=== PATIENT | female | born 1930 | race Caucasian/White ===

== ENCOUNTER 2020-05-04 10:59 | Inpatient (IN) | payer MEDICARE ==
[2020-05-04 11:17] LABS: Hemoglobin 12.3 g/dL (12.0-16.0); Mean Corpuscular Hemoglobin 31.4 pg (27.0-31.0); Mean Corpuscular Volume 92.2 fL (78.0-98.0); Mean Platelet Volume 7.9 fL (7.4-10.4); Platelet Count 328 thou/uL (130-400); RBC Distribution Width 11.5 % (11.5-14.5); Red Blood Cell (RBC) Count 3.92 mill/uL (4.20-5.40); White Blood Cell (WBC) Count 7.5 thou/uL (4.8-10.8)
[2020-05-04 11:28] LABS: ALT (SGPT) 17 U/L (8-55); AST (SGOT) 37 U/L (5-34); Albumin 3.7 g/dL (3.4-4.8); Alkaline Phosphatase 97 U/L (40-110); Anion Gap 14 mmol/L (10-20); BUN (Urea Nitrogen) 21 mg/dL (9.8-20.1); Bilirubin, Total 0.7 mg/dL (0.2-1.2); Calc. Creatinine Clearance 0 mL/min (70-130); Calcium 8.8 mg/dL (7.8-10.44); Carbon Dioxide 21 mmol/L (23-31); Chloride 105 mmol/L (98-107); Glucose 129 mg/dL (83-110); Potassium 4.1 mmol/L (3.5-5.1); Protein, Total 6.7 g/dL (5.8-8.1); Sodium 136 mmol/L (136-145)
[2020-05-04 11:38] LABS: Band 1 % (5-11); Eosinophils 4 % (0-10); Lymphocytes 45 % (21-51); MDiff Complete? YES; Monocytes 8 % (0-10); Neutrophil 41 % (42-75); Platelet Morphology Comment Appears Adequate; RBC Morphology Normal
[2020-05-04 11:39] LABS: Prothrombin Time 13.1 sec (12.0-14.7)
[2020-05-04 11:40] LABS: PTT 36.2 sec (22.9-36.1)
[2020-05-04 13:00] LABS: Bilirubin Negative (Negative); Blood, Urine Trace (Negative); Glucose, Urine (Dipstick) Negative (Negative); Ketone, Urine Negative (Negative); Leukocyte Moderate (Negative); Nitrite Negative (Negative); Protein, Urine (Dipstick) Negative (Neg-Trace); Specific Gravity, Urine 1.025 (1.005-1.030); Urobilinogen 0.2 mg/dL (Less than 2)
[2020-05-04 13:02] LABS: Clarity Hazy (Clear)
[2020-05-04] MEDS ORDERED: cefTRIAXone\\ROCEPHIN 1 GM VIAL ONE ×2 (13:15→13:34)
[2020-05-04] MEDS ORDERED: hydrALAZINE 20 MG/ML VIAL SLOW IVP PRN (13:26)
[2020-05-04] MEDS ORDERED: Acetaminophen 650 MG Suppository PR PRN (13:26)
[2020-05-04] MEDS ORDERED: Ondansetron PF 4 MG/2 ML Vial IVP PRN (13:26)
[2020-05-04] MEDS ORDERED: Acetaminophen 325 MG TAB PO PRN (13:26)
[2020-05-04] MEDS ORDERED: Ondansetron ODT 4 MG TAB PO PRN (13:26)
[2020-05-04] MEDS ORDERED: Magnesium 2 GM/50 ML 2 GM in Premix Bag 1 BAG IVPB SCH (14:15)
[2020-05-04 15:01] LABS: Hemoglobin A1c 4.9 % (4.0-6.0)
[2020-05-04] MEDS: Sodium Chloride 0.9% 1,000 ML IV SCH (18:13)
[2020-05-05] MEDS: Sodium Chloride 0.9% 1,000 ML IV SCH ×2 (00:27→17:10)
[2020-05-05 02:38] LABS: SARS-CoV-2 PCR by NAA Not Detected (NotDetected)
[2020-05-05 04:27] LABS: #Basophils 0.1 thou/uL (0.0-0.2); #Eosinphils 0.2 thou/uL (0.0-0.7); #Lymphocytes 2.4 thou/uL (1.20-3.40); #Monocytes 0.8 thou/uL (0.11-0.59); #Neutrophils 4.9 thou/uL (1.40-6.50); %Basophils 0.8 % (0.0-1.0); %Eosinophils 2.5 % (0.0-10.0); %Lymphocytes 28.8 % (21.0-51.0); %Monocytes 9.7 % (0.0-10.0); %Neutrophils 58.2 % (42.0-75.0); Hemoglobin 11.3 g/dL (12.0-16.0); Mean Corpuscular HGB CONC 32.6 g/dL (32.0-36.0); Mean Platelet Volume 7.6 fL (7.4-10.4); Platelet Count 325 thou/uL (130-400); RBC Distribution Width 11.5 % (11.5-14.5); Red Blood Cell (RBC) Count 3.79 mill/uL (4.20-5.40); White Blood Cell (WBC) Count 8.3 thou/uL (4.8-10.8)
[2020-05-05 04:47] LABS: Anion Gap 11 mmol/L (10-20); BUN (Urea Nitrogen) 16 mg/dL (9.8-20.1); Calc. Creatinine Clearance 61 mL/min (70-130); Calcium 8.6 mg/dL (7.8-10.44); Carbon Dioxide 24 mmol/L (23-31); Chloride 109 mmol/L (98-107); Cholesterol 170 mg/dl (< 200 Desired); Glucose 89 mg/dL (83-110); HDL Cholesterol 56 mg/dL (>60 Neg Risk); LDL Cholesterol, Calculated 101 mg/dL; Potassium 4.1 mmol/L (3.5-5.1); Sodium 140 mmol/L (136-145); Triglycerides 64 mg/dL (Less than 150)
[2020-05-05] MEDS: Aspirin 81 mg Enteric Coated Tablet PO SCH (08:41)
[2020-05-05] MEDS ORDERED: Iopamidol 370 76% 100 ML VIAL ONE (10:46)
[2020-05-05 12:53] VITALS: BMI 28.3
[2020-05-06 05:12] LABS: #Basophils 0.1 thou/uL (0.0-0.2); #Eosinphils 0.2 thou/uL (0.0-0.7); #Lymphocytes 2.1 thou/uL (1.20-3.40); #Monocytes 0.6 thou/uL (0.11-0.59); #Neutrophils 3.9 thou/uL (1.40-6.50); %Basophils 1.8 % (0.0-1.0); %Eosinophils 2.4 % (0.0-10.0); %Lymphocytes 30.9 % (21.0-51.0); %Monocytes 8.5 % (0.0-10.0); %Neutrophils 56.4 % (42.0-75.0); Mean Corpuscular HGB CONC 31.7 g/dL (32.0-36.0); Mean Corpuscular Hemoglobin 28.9 pg (27.0-31.0); Mean Corpuscular Volume 90.9 fL (78.0-98.0); Platelet Count 346 thou/uL (130-400); RBC Distribution Width 11.4 % (11.5-14.5); Red Blood Cell (RBC) Count 4.15 mill/uL (4.20-5.40); White Blood Cell (WBC) Count 6.9 thou/uL (4.8-10.8)
[2020-05-06 05:32] LABS: Anion Gap 14 mmol/L (10-20); BUN (Urea Nitrogen) 13 mg/dL (9.8-20.1); Calc. Creatinine Clearance 60 mL/min (70-130); Carbon Dioxide 22 mmol/L (23-31); Chloride 107 mmol/L (98-107); Glucose 90 mg/dL (83-110); Potassium 3.6 mmol/L (3.5-5.1); Sodium 139 mmol/L (136-145)
[2020-05-06] MEDS: Aspirin 81 mg Enteric Coated Tablet PO SCH (08:02)
[2020-05-06] MEDS: Sodium Chloride 0.9% 1,000 ML IV SCH (08:02)
[2020-05-07] MEDS: Sodium Chloride 0.9% 1,000 ML IV SCH ×2 (00:55→05:58)
[2020-05-07 04:32] LABS: #Basophils 0.1 thou/uL (0.0-0.2); #Eosinphils 0.3 thou/uL (0.0-0.7); #Lymphocytes 2.6 thou/uL (1.20-3.40); #Monocytes 0.9 thou/uL (0.11-0.59); #Neutrophils 3.4 thou/uL (1.40-6.50); %Basophils 0.9 % (0.0-1.0); %Eosinophils 4.5 % (0.0-10.0); %Monocytes 11.8 % (0.0-10.0); %Neutrophils 46.8 % (42.0-75.0); Mean Corpuscular HGB CONC 32.5 g/dL (32.0-36.0); Mean Corpuscular Hemoglobin 29.6 pg (27.0-31.0); Mean Corpuscular Volume 91.3 fL (78.0-98.0); Platelet Count 327 thou/uL (130-400); RBC Distribution Width 11.5 % (11.5-14.5); Red Blood Cell (RBC) Count 4.03 mill/uL (4.20-5.40); White Blood Cell (WBC) Count 7.3 thou/uL (4.8-10.8)
[2020-05-07 04:54] LABS: Anion Gap 11 mmol/L (10-20); BUN (Urea Nitrogen) 19 mg/dL (9.8-20.1); Calc. Creatinine Clearance 59 mL/min (70-130); Calcium 8.6 mg/dL (7.8-10.44); Carbon Dioxide 26 mmol/L (23-31); Chloride 107 mmol/L (98-107); Glucose 87 mg/dL (83-110); Potassium 3.8 mmol/L (3.5-5.1); Sodium 140 mmol/L (136-145)
[2020-05-07] MEDS: Aspirin 81 mg Enteric Coated Tablet PO SCH (07:47)
[2020-05-07] MEDS ORDERED: ADENOSINE 60 MG/20 ML VIAL ONE (10:40)
[2020-05-07] MEDS: Amlodipine 5 MG TAB PO SCH (11:28)
[2020-05-07] MEDS ORDERED: Donepezil HCl 10 MG TAB PO SCH (21:00)
[2020-05-08 04:51] LABS: #Basophils 0.1 thou/uL (0.0-0.2); #Eosinphils 0.3 thou/uL (0.0-0.7); #Lymphocytes 2.3 thou/uL (1.20-3.40); #Monocytes 0.8 thou/uL (0.11-0.59); #Neutrophils 4.2 thou/uL (1.40-6.50); %Basophils 0.9 % (0.0-1.0); %Eosinophils 3.3 % (0.0-10.0); %Lymphocytes 30.5 % (21.0-51.0); %Monocytes 10.4 % (0.0-10.0); %Neutrophils 54.9 % (42.0-75.0); Hemoglobin 11.8 g/dL (12.0-16.0); Mean Corpuscular HGB CONC 33.5 g/dL (32.0-36.0); Mean Corpuscular Hemoglobin 30.7 pg (27.0-31.0); Mean Corpuscular Volume 91.7 fL (78.0-98.0); Mean Platelet Volume 8.2 fL (7.4-10.4); Platelet Count 322 thou/uL (130-400); RBC Distribution Width 11.3 % (11.5-14.5); Red Blood Cell (RBC) Count 3.83 mill/uL (4.20-5.40); White Blood Cell (WBC) Count 7.6 thou/uL (4.8-10.8)
[2020-05-08 05:13] LABS: Anion Gap 12 mmol/L (10-20); BUN (Urea Nitrogen) 17 mg/dL (9.8-20.1); Calc. Creatinine Clearance 61 mL/min (70-130); Calcium 8.7 mg/dL (7.8-10.44); Carbon Dioxide 23 mmol/L (23-31); Chloride 107 mmol/L (98-107); Glucose 89 mg/dL (83-110); Potassium 3.8 mmol/L (3.5-5.1); Sodium 138 mmol/L (136-145)
[2020-05-08] MEDS: Amlodipine 5 MG TAB PO SCH ×2 (07:43→09:34)
[2020-05-08] MEDS: Aspirin 81 mg Enteric Coated Tablet PO SCH (07:43)
[2020-05-08] MEDS: traZODone HCl 50 MG TAB PO SCH (07:43)
[2020-05-08] MEDS ORDERED: Communication Order-Pharmacy FS SCH (18:15)
[2020-05-08] MEDS: Sodium Chloride 0.9% 1,000 ML IV SCH (18:44)
[2020-05-09] MEDS: Aspirin 81 mg Enteric Coated Tablet PO SCH (05:12)
[2020-05-09] MEDS: Amlodipine 5 MG TAB PO SCH (05:12)
[2020-05-09] MEDS: traZODone HCl 50 MG TAB PO SCH (05:13)
[2020-05-09] MEDS: Sodium Chloride 0.9% 1,000 ML IV SCH ×2 (05:29→18:22)
[2020-05-09] MEDS ORDERED: Iopamidol 370 76% 100 ML VIAL ONE (08:57)
[2020-05-09] MEDS ORDERED: Lidocaine 1% (PF) 30 ML VIAL ONE (09:49)
[2020-05-09] MEDS ORDERED: Nitroglycerin 100MG/250ML BOT 250 ML ONE (10:36)
[2020-05-09] MEDS ORDERED: Nitroglycerin 0.4 MG TAB (25 Tab Bottle) SL PRN (11:44)
[2020-05-09] MEDS ORDERED: Sodium Chloride 0.9% 200 ML IV PRN (11:44)
[2020-05-10] MEDS: Sodium Chloride 0.9% 1,000 ML IV SCH ×2 (00:30→10:37)
[2020-05-10] MEDS: traZODone HCl 50 MG TAB PO SCH (08:43)
[2020-05-10] MEDS: Aspirin 81 mg Enteric Coated Tablet PO SCH (08:43)
[2020-05-10] MEDS: Amlodipine 5 MG TAB PO SCH (08:43)
[2020-05-11] MEDS ORDERED: Sodium Chloride 0.9% 1,000 ML IV SCH (06:00)
[2020-05-11] MEDS ORDERED: CEFAZOLIN 2 GM in Premix Bag 1 BAG IVPB SCH (06:00)
[2020-05-11] MEDS: Amlodipine 5 MG TAB PO SCH (07:50)
[2020-05-11] MEDS: Aspirin 81 mg Enteric Coated Tablet PO SCH (07:51)
[2020-05-11] MEDS: traZODone HCl 50 MG TAB PO SCH (07:54)
[2020-05-11] MEDS ORDERED: CEFAZOLIN 1 GM VIAL ONE (07:55)
[2020-05-11] MEDS ORDERED: Gentamicin 80 MG/2 ML VIAL ONE (07:55)
[2020-05-11] MEDS ORDERED: Fentanyl 100 MCG/2 ML VIAL ONE (10:57)
[2020-05-11] MEDS ORDERED: Midazolam HCl 2 mg/2 ml Vial ONE (10:57)
[2020-05-11] MEDS ORDERED: Iopamidol 370 76% 50 ML VIAL FS ONE (11:01)
[2020-05-11] MEDS ORDERED: Lidocaine 1% (PF) 30 ML VIAL ONE (11:02)
[2020-05-11] MEDS: Cephalexin 250 MG CAP PO SCH ×2 (17:17→20:06)
[2020-05-12] MEDS: Aspirin 81 mg Enteric Coated Tablet PO SCH (09:22)
[2020-05-12] MEDS: Cephalexin 250 MG CAP PO SCH (09:22)
[2020-05-12] MEDS: Amlodipine 5 MG TAB PO SCH (09:23)
[2020-05-12] MEDS: traZODone HCl 50 MG TAB PO SCH (09:23)
[2020-05-12 12:03] VITALS: BP 161/74; TEMP 97.6
[2020-05-12] MEDS ORDERED: Rosuvastatin 20 MG TAB PO SCH (21:00)
== END 2020-05-12 13:45 | disposition home health service (06) | DRG 244 ==
LOC: ERS 10:59 → ERHOLD 13:59 → 2NO 15:58
PROVIDERS: ADMIT Internal Medicine; ATTEND Hospitalist
PROC: 0JH606Z Insertion of Pacemaker, Dual Chamber into Chest Subcutaneous Tissue and Fascia, Open Approach (ICD-10-PCS; principal; 2020-05-04)
PROC: 02HK3JZ Insertion of Pacemaker Lead into Right Ventricle, Percutaneous Approach (ICD-10-PCS; 2020-05-04)
PROC: 02H63JZ Insertion of Pacemaker Lead into Right Atrium, Percutaneous Approach (ICD-10-PCS; 2020-05-04)
PROC: 4A023N7 Measurement of Cardiac Sampling and Pressure, Left Heart, Percutaneous Approach (ICD-10-PCS; 2020-05-04)
PROC: B2111ZZ Fluoroscopy of Multiple Coronary Arteries using Low Osmolar Contrast (ICD-10-PCS; 2020-05-04)
PROC: B2151ZZ Fluoroscopy of Left Heart using Low Osmolar Contrast (ICD-10-PCS; 2020-05-04)
DX: I49.5 Sick sinus syndrome (principal); I10 Essential (primary) hypertension; F03.90 Unspecified dementia, unspecified severity, without behavioral disturbance, psychotic disturbance, mood disturbance, and anxiety; I44.0 Atrioventricular block, first degree; R91.1 Solitary pulmonary nodule; I35.1 Nonrheumatic aortic (valve) insufficiency; I25.10 Atherosclerotic heart disease of native coronary artery without angina pectoris; E78.00 Pure hypercholesterolemia, unspecified; Z79.82 Long term (current) use of aspirin; Z90.710 Acquired absence of both cervix and uterus
CPT/HCPCS: 33208; 36005; 36415; 36416; 51701; 70450; 70551; 71045; 71275; 75820; 76942; 78452; 80048; 80053; 80061; 81003; 81015; 83036; 83735; 83880; 84443; 84484; 85025; 85379; 85610; 85730; 87635; 93005; 93017; 93306; 93458; 93880; 94760; 95816; 95819; 95957; 96365; 97139; 99152; 99153; A9500; C1785; C1898; J0153; J0690; J0696; J1580; J1644; J2001; J2250; J3010; Q9967; U0003; U0005

== ENCOUNTER 2021-02-20 13:08 | Emergency (ER) | payer MEDICARE ==
[2021-02-20] MEDS ORDERED: Dexamethasone 10 MG/ML VIAL ONE (15:53)
[2021-02-20 16:43] LABS: #Basophils 0.1 thou/uL (0.0-0.2); #Eosinphils 0.3 thou/uL (0.0-0.7); #Lymphocytes 3.1 thou/uL (1.20-3.40); #Neutrophils 4.4 thou/uL (1.40-6.50); %Basophils 0.7 % (0.0-1.0); %Eosinophils 2.9 % (0.0-10.0); %Lymphocytes 35.2 % (21.0-51.0); %Monocytes 11.2 % (0.0-10.0); Hemoglobin 10.9 g/dL (12.0-16.0); Mean Corpuscular HGB CONC 34.1 g/dL (32.0-36.0); Mean Corpuscular Hemoglobin 31.4 pg (27.0-31.0); Mean Platelet Volume 6.7 fL (7.4-10.4); Platelet Count 357 thou/uL (130-400); RBC Distribution Width 11.9 % (11.5-14.5); Red Blood Cell (RBC) Count 3.48 mill/uL (4.20-5.40); White Blood Cell (WBC) Count 8.9 thou/uL (4.8-10.8)
[2021-02-20] MEDS ORDERED: Albuterol 200 PUFF (6.7GM INHALER) ONE (16:45)
[2021-02-20 17:05] LABS: ALT (SGPT) 25 U/L (8-55); AST (SGOT) 54 U/L (5-34); Alkaline Phosphatase 98 U/L (40-110); Anion Gap 12 mmol/L (10-20); BUN (Urea Nitrogen) 16 mg/dL (9.8-20.1); Bilirubin, Total 0.5 mg/dL (0.2-1.2); Calc. Creatinine Clearance 0 mL/min (70-130); Calcium 9.7 mg/dL (7.8-10.44); Carbon Dioxide 28 mmol/L (23-31); Chloride 104 mmol/L (98-107); Globulin 3.5 g/dL (2.4-3.5); Glucose 101 mg/dL (83-110); Potassium 4.1 mmol/L (3.5-5.1); Protein, Total 7.5 g/dL (5.8-8.1); Sodium 140 mmol/L (136-145)
[2021-02-20 17:10] LABS: Bilirubin Negative (Negative); Blood, Urine Negative (Negative); Clarity Clear (Clear); Glucose, Urine (Dipstick) Normal (Negative); Ketone, Urine Negative (Negative); Leukocyte Negative Leu/uL (Negative); Nitrite Negative (Negative); Protein, Urine (Dipstick) Negative (Neg-Trace); Specific Gravity, Urine 1.009 (1.002-1.036); Urobilinogen Normal mg/dL (Less than 2); pH, Urine 7.5 (5.0-9.0)
[2021-02-20 22:29] LABS: SARS-CoV-2 PCR by NAA Not Detected (NotDetected)
== END 2021-02-20 17:57 | disposition home or self-care (01) ==
LOC: ERS 13:08
DX: R06.2 Wheezing (principal); Z20.822 Contact with and (suspected) exposure to COVID-19; I10 Essential (primary) hypertension; Z79.82 Long term (current) use of aspirin
CPT/HCPCS: 71046; 80053; 81003; 83880; 84484; 85025; 93005; 99285; U0003; U0005; 36415; J1100; J7620